=== PATIENT | female | born 1990 | race American Indian/Alaskan Native ===

== ENCOUNTER 2017-11-15 19:07 | Emergency (ER) | payer OTHER ==
[2017-11-15 19:16] VITALS: BP 127/89
[2017-11-15 19:42] LABS: Hematocrit 37.9 % (30.3-42.9); Hemoglobin 12.7 gm/dl (10.1-14.3); Mean Corpuscular HGB Conc 34 % (30-34); Mean Corpuscular Hemoglobin 29 pg (28-32); Mean Corpuscular Volume 86 fl (79-97); Platelet Count 235 K/mm3 (140-440); Red Blood Count 4.43 M/mm3 (3.65-5.03); Red Cell Distribution Width 13.2 % (13.2-15.2)
[2017-11-15 19:51] LABS: BUN/Creatinine Ratio 12; Blood Urea Nitrogen 7 mg/dL (7-17); Calcium 9.1 mg/dL (8.4-10.2); Hemolysis Index 2
[2017-11-15 19:55] LABS: Bacteria,Urine 1+ /HPF (Negative); Bilirubin,Urine NEG (Negative); Blood,Urine NEG (Negative); Color,Urine Yellow (Yellow); Mucus,Urine FEW /HPF; Protein,Urine <15 mg/dL mg/dL (Negative)
[2017-11-15 19:56] LABS: HCG Qualitative,Urine Negative (Negative)
--- NOTE | 2017-11-15 20:26 | Emergency Department Report ---
ED Fever HPI - General Chief Complaint: Fever Stated Complaint: BODY PAIN/FEVER Time Seen by Provider: 11/15/17 20:21 Source: patient Exam Limitations: no limitations - History of Present Illness Initial Comments: 26-year-old [place] female comes in complaining of fever and flulike symptoms. Patient reports that she's been traveling [place] and just got back today patient denies any nausea no vomiting no urinary symptoms. Patient did take a baby Tylenol prior to arrival as well as TheraFlu. She reports that the fever started yesterday. She admits to a cough with deep breath mucous is yellow and thick, chills body aches no headache. MAXIMUM TEMPERATURE of 102.0. As well as she complains of back pain thinking it is mostly from the travel. 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 denies: headache, nausea/vomiting, sore throat ED Review of Systems ROS: Stated complaint: BODY PAIN/FEVER Other details as noted in HPI Constitutional: chills, fever Eyes: denies: eye pain, eye discharge, vision change ENT: denies: ear pain, throat pain Respiratory: cough, SOB with exertion Cardiovascular: denies: chest pain, palpitations Endocrine: no symptoms reported Gastrointestinal: denies: abdominal pain, nausea, diarrhea Genitourinary: denies: urgency, dysuria, discharge Musculoskeletal: back pain Skin: denies: rash, lesions Neurological: denies: headache, weakness, paresthesias Psychiatric: denies: anxiety, depression Hematological/Lymphatic: denies: easy bleeding, easy bruising ED Past Medical Hx - Past Medical History Previous Medical History?: No - Surgical History Past Surgical History?: No - Social History Smoking Status: Never Smoker Substance Use Type: Alcohol - Medications Home Medications: Home Medications Medication Instructions Recorded Confirmed Last Taken Type ALBUTEROL Inhaler [ProAir HFA 2 puff IH QID PRN #1 inhalation 11/15/17 Unknown Rx Inhaler] Erythromycin Base [Erythromycin] 250 mg PO QID #40 tablet 11/15/17 Unknown Rx Ibuprofen [Motrin 600 MG tab] 600 mg PO Q8H #30 tablet 11/15/17 Unknown Rx ED Physical Exam - General Limitations: No Limitations General appearance: alert, in no apparent distress - Head Head exam: Present: atraumatic, normocephalic - Eye Eye exam: Present: normal appearance - ENT ENT exam: Present: mucous membranes moist, TM's normal bilaterally - Neck Neck exam: Present: full ROM. Absent: lymphadenopathy - Respiratory Respiratory exam: Present: rhonchi - Cardiovascular Cardiovascular Exam: Present: tachycardia - GI/Abdominal GI/Abdominal exam: Present: soft, normal bowel sounds - Extremities Exam Extremities exam: Present: normal inspection, full ROM - Back Exam Back exam: Present: full ROM. Absent: tenderness - Neurological Exam Neurological exam: Present: alert, oriented X3 - Psychiatric Psychiatric exam: Present: normal affect, normal mood - Skin Skin exam: Present: warm, dry, intact, normal color. Absent: rash ED Course Vital Signs 11/15/17 19:12 Temperature 101.8 F H Pulse Rate 116 H Respiratory 18 Rate Blood Pressure 127/89 O2 Sat by Pulse 98 Oximetry ED Medical Decision Making - Lab Data Result diagrams: 11/15/17 19:28 11/15/17 19:28 - Radiology Data Radiology results: report reviewed, image reviewed FINAL REPORT PROCEDURE: XR CHEST ROUTINE 2V TECHNIQUE: PA and lateral chest radiographs were obtained. CPT 22217 HISTORY: fever/productive cough COMPARISON: No prior studies are available for comparison. FINDINGS: Heart: Normal. Mediastinum/Vessels: Normal. Lungs/Pleural space: Mild left hilar infiltrate. Bony thorax: No acute osseous abnormality. Other: IMPRESSION: Mild left hilar infiltrate. Transcribed By: [facility] Dictated By: HADLEY KRAUS MD Electronically Authenticated By: HADLEY KRAUS MD Signed Date/Time: 11/15/172042 DD/ 42 TD/TT: 11/15/172042 - Medical Decision Making Patient has been evaluated by this provider in fast track. CBC BMP urinalysis ordered Chest x-ray is pending Ibuprofen 600 mg as been ordered Patient denies any nausea no vomiting urinalysis shows no ketones BUN/ creatinine is all normal. No need for IV fluids at this time. Critical care attestation.: If time is entered above; I have spent that time in minutes in the direct care of this critically ill patient, excluding procedure time. ED Disposition Clinical Impression: Left pulmonary infiltrate on CXR Disposition: -01 TO HOME OR SELFCARE Is pt being admited?: No Does the pt Need Aspirin: No Condition: Stable Instructions: Pneumonia (ED), Community-acquired Pneumonia (ED) Additional Instructions: Please complete antibiotics as prescribed. Use albuterol inhaler as needed for shortness of breath and cough. Ibuprofen for fever and muscle aches. If symptoms persists or gets worse please follow up with her primary care provider. Prescriptions: ALBUTEROL Inhaler [ProAir HFA Inhaler] 2 puff IH QID PRN #1 inhalation PRN Reason: Shortness Of Breath Erythromycin Base [Erythromycin] 250 mg PO QID #40 tablet Ibuprofen [Motrin 600 MG tab] 600 mg PO Q8H #30 tablet Referrals: PRIMARY CARE, [Primary Care Provider] - 3-5 Days [facility] [Provider Group] - 3-5 Days Forms: Work/School Release Form(ED), Accompanied Note
--- NOTE | 2017-11-15 20:47 | XRay Report ---
FINAL REPORT PROCEDURE: XR CHEST ROUTINE 2V TECHNIQUE: PA and lateral chest radiographs were obtained. CPT 21340 HISTORY: fever/productive cough COMPARISON: No prior studies are available for comparison. FINDINGS: Heart: Normal. Mediastinum/Vessels: Normal. Lungs/Pleural space: Mild left hilar infiltrate. Bony thorax: No acute osseous abnormality. Other: IMPRESSION: Mild left hilar infiltrate.
[2017-11-15] MEDS ORDERED: MOTRIN PO ONE (20:59)
== END 2017-11-15 21:35 | disposition home or self-care (01) ==
LOC: ED 19:07
DX: R91.8 Other nonspecific abnormal finding of lung field (principal)
CPT/HCPCS: 36415; 71046; 80048; 81001; 81025; 82140; 85027